=== PATIENT | male | born 1985 | race Two or more races ===

== ENCOUNTER 2024-03-31 14:43 | Outpatient (REF) | payer MEDICAID, SELFPAY ==
[2024-03-31 16:42] LABS: Appearance Urine Clear; Color Urine Yellow; Glucose Urine UA Negative (Negative); Leukocyte Esterase Urine Negative (Negative); Nitrite Urine Negative (Negative); Specific Gravity - Urine 1.015 (1.005-1.025); UMIC TRIGGER UA YES; Urine Blood Negative (Negative); Urine Ketones Negative (Negative); Urine Protein 300 (3+) mg/dL (Neg-Trace)
[2024-03-31 16:46] LABS: Bacteria Urine None Seen (None Seen); Hyaline Casts Urine 0-2 /LPF (0-2); RBC Urine 0-2 /HPF (0-2); Squamous Epithelial Cell Urine 0-2 /HPF (0-2); WBC Urine 0-5 /HPF (0-5)
[2024-03-31 17:37] LABS: Prostate Specific Antigen 0.23 ng/mL (<0.05-4.0)
== END 2024-03-31 14:44 | disposition home or self-care (01) ==
LOC: HO.HHCL 14:43
PROVIDERS: Visit Provider Internal Medicine Geriatric Medicine
DX: Z13.89 Encounter for screening for other disorder (principal)
CPT/HCPCS: 36415; 81001; 84153